=== PATIENT | female | born 1990 | race Caucasian/White ===

== ENCOUNTER 2019-08-06 15:03 | Emergency (ER) | payer MEDICAID, OTHER ==
[~2019-08-06] VITALS: Ht 154.9 cm; Wt 68.0 kg
[2019-08-06] MEDS ORDERED: ALBUTEROL SULF 2.5 MG/0.5ML(0.5%) NEB SOLN NEB ONE (15:15)
[2019-08-06] MEDS ORDERED: IPRATROPIUM BROM 0.5 MG/2.5ML INH SOL NEB ONE (15:15)
[2019-08-06] MEDS ORDERED: methylPREDNISolone SOD SUCC 125 MG/2 ML VL IM ONE (16:00)
[2019-08-06] MEDS ORDERED: ALBUTEROL SULF 2.5 MG/0.5ML(0.5%) NEB SOLN HHN ONE (17:00)
[2019-08-06] MEDS ORDERED: IPRATROPIUM BROM 0.5 MG/2.5ML INH SOL HHN ONE (17:00)
[2019-08-06 17:07] LABS: Urine Bacteria NONE SEEN /hpf (None Seen); Urine Blood Negative /uL (Negative); Urine Mucus FEW (None Seen); Urine Specific Gravity 1.009 (1.001-1.035); Urine WBC 5 /hpf (0 - 5)
[2019-08-06 17:51] VITALS: BP 120/47
== END 2019-08-06 18:30 | disposition home or self-care (01) ==
LOC: ER 15:18
DX: J45.901 Unspecified asthma with (acute) exacerbation (principal)
CPT/HCPCS: 71046; 81001; 81025; 94640; 94644; 96372; 99285; J2930; J7611; J7644